=== PATIENT | female | born 1945 | race Caucasian/White ===

== ENCOUNTER 2019-09-25 15:31 | Inpatient (IN) ==
[2019-09-25 16:55] LABS: Basophils # 0.1 10*3/uL (0.0-0.2); Basophils % 0.6 % (0.0-0.8); Eosinophils # 0.1 10*3/uL (0.0-0.87); Eosinophils % 0.4 % (0.00-10.9); Hematocrit 40.5 VOL% (35.7-47.0); Hemoglobin 13.3 GM/DL (12.0-16.0); Immature Granulocytes % 0.5 %; Immature Granulocytes Absolute 0.08 #; Lymphocytes # 1.4 10*3/uL (1.4-4.0); Lymphocytes % 8.9 % (21.3-54.2); Mean Corpuscular HGB Conc 32.8 GM/DL (32-36); Mean Corpuscular Volume 97.8 FL (87-102); Mean Platelet Volume 9.8 FL (9.6-12.0); Monocytes % 6.6 % (1.7-12.7); Platelet Count 469 T/CUMM (130-400); Red Blood Count 4.14 MC/CUMM (3.8-5.5); Red Cell Distribution Width 12.9 % (9.3-17.3); White Blood Count 16.2 T/CUMM (4-12)
[2019-09-25] MEDS ORDERED: DEXTROSE 50% 25 GM/50 ML SYRINGE IV ONE (17:01)
[2019-09-25] MEDS ORDERED: INSULIN REGULAR 100 UNIT/ML ONE (17:03)
[2019-09-25 17:21] LABS: Calcium 9.8 MG/DL (8.5-10.1); Osmolality,Calculated 268.2 MOS/KG (273-304)
[2019-09-25] MEDS ORDERED: LEVOFLOXACIN INJ 750 MG in PREMIX 1 EACH IV STA (17:26)
[2019-09-25] MEDS ORDERED: DEXTROSE 10% 250 ML BAG IV PRN (18:26)
[2019-09-25] MEDS ORDERED: MORPHINE 4 MG/1 ML VIAL IV PRN (18:26)
[2019-09-25] MEDS ORDERED: NICOTINE 21 MG/24 HR PATCH TRANSDERM PRN (18:26)
[2019-09-25] MEDS ORDERED: DOCUSATE SODIUM 100 MG CAPSULE PO PRN (18:26)
[2019-09-25] MEDS ORDERED: guaiFENesin/DM ER 600-30 MG TABLET PO PRN (18:26)
[2019-09-25] MEDS ORDERED: GLUCAGON 1 MG VIAL IM PRN (18:26)
[2019-09-25] MEDS ORDERED: ONDANSETRON 4 MG/2 ML VIAL IV PRN (18:26)
[2019-09-25] MEDS ORDERED: ALBUTEROL/IPRATROPIUM 3 ML NEB RESP TX PRN (18:26)
[2019-09-25] MEDS ORDERED: POTASSIUM CHLORIDE 20 MEQ TABLET PO PRN (18:49)
[2019-09-25] MEDS ORDERED: MAGNESIUM SULF RIDER 2 GM in PREMIX 1 EACH IV PRN (18:49)
[2019-09-25] MEDS ORDERED: MAGNESIUM SULF RIDER 4 GM in PREMIX 1 EACH IV PRN (18:49)
[2019-09-25] MEDS ORDERED: hydrALAZINE 20 MG/1 ML VIAL IV PRN (18:49)
[2019-09-25] MEDS: ENOXAPARIN 40 MG/0.4 ML SYRINGE SUBCUT SCH (20:02)
[2019-09-25 21:12] LABS: Apearance,Urine CLEAR (Clear); Bilirubin,Urine Negative (Negative); Blood, Urine Moderate mg/dL (Negative); Glucose,Urine (UA) Negative (Negative); Ketones,Urine Negative (Negative); Mucus,Urine Occasional /LPF (Occasional); Nitrite,Urine Negative (Negative); Protein,Urine 30 MG/DL; RBC,Urine 1 /HPF (0-4); Squamous Epithelial Cell,Urine Occasional /HPF (0-10); Urine Color Yellow (Yellow); Urine Specific Gravity 1.016 (1.001-1.035); Urine Urobilinogen < 2.0 EU/DL (0.2-1.0); WBC,Urine 1 /HPF (0-6)
[2019-09-25 22:02] LABS: Barbiturates Screen,Urine Negative (Negative); Benzodiazepines Screen,Urine Negative (Negative); Cannabinoid Screen,Urine Negative (Negative); Opiate Screen,Urine Positive (Negative); Phencyclidine Screen,Urine Negative (Negative)
[2019-09-25] MEDS ORDERED: ACETAMINOPHEN 325 MG TABLET PO PRN (23:31)
[2019-09-26 04:55] LABS: Basophils # 0.1 10*3/uL (0.0-0.2); Basophils % 0.6 % (0.0-0.8); Eosinophils # 0.1 10*3/uL (0.0-0.87); Eosinophils % 0.5 % (0.00-10.9); Hematocrit 38.3 VOL% (35.7-47.0); Hemoglobin 11.3 GM/DL (12.0-16.0); Immature Granulocytes % 0.6 %; Immature Granulocytes Absolute 0.06 #; Lymphocytes # 1.7 10*3/uL (1.4-4.0); Lymphocytes % 16.1 % (21.3-54.2); Mean Corpuscular HGB Conc 29.5 GM/DL (32-36); Mean Corpuscular Volume 109.4 FL (87-102); Mean Platelet Volume 9.6 FL (9.6-12.0); Monocytes % 10.5 % (1.7-12.7); Neutrophils % 71.7 % (38.7-73.9); Platelet Count 384 T/CUMM (130-400); Red Cell Distribution Width 13.2 % (9.3-17.3); White Blood Count 10.6 T/CUMM (4-12)
[2019-09-26 05:17] LABS: Albumin 2.5 G/DL (3.4-5.0); Bilirubin,Total 0.5 MG/DL (0.2-1.0); Osmolality,Calculated 267.2 MOS/KG (273-304); Thyroid Stimulating Hormone 1.07 uIU/ml (0.358-3.74); Total Protein 6.9 G/DL (6.4-8.3)
[2019-09-26] MEDS: PANTOPRAZOLE 40 MG TABLET PO SCH (09:07)
[2019-09-26] MEDS: LEVOFLOXACIN INJ 750 MG in PREMIX 1 EACH IV SCH (18:32)
[2019-09-26] MEDS: ENOXAPARIN 40 MG/0.4 ML SYRINGE SUBCUT SCH (20:00)
[2019-09-27 04:32] LABS: Basophils # 0.1 10*3/uL (0.0-0.2); Basophils % 0.8 % (0.0-0.8); Eosinophils # 0.1 10*3/uL (0.0-0.87); Eosinophils % 1.4 % (0.00-10.9); Hematocrit 35.5 VOL% (35.7-47.0); Hemoglobin 11.5 GM/DL (12.0-16.0); Immature Granulocytes Absolute 0.09 #; Lymphocytes # 1.9 10*3/uL (1.4-4.0); Lymphocytes % 20.3 % (21.3-54.2); Mean Corpuscular HGB Conc 32.4 GM/DL (32-36); Mean Corpuscular Volume 99.2 FL (87-102); Mean Platelet Volume 9.5 FL (9.6-12.0); Monocytes % 9.1 % (1.7-12.7); Neutrophils % 67.4 % (38.7-73.9); Platelet Count 385 T/CUMM (130-400); Red Blood Count 3.58 MC/CUMM (3.8-5.5); White Blood Count 9.3 T/CUMM (4-12)
[2019-09-27 05:02] LABS: Alanine Aminotransferase 13 U/L (13-56); Albumin 2.3 G/DL (3.4-5.0); Alkaline Phosphatase 82 U/L (45-117); Aspartate Amino Transferase 11 U/L (0-37); Bilirubin,Total < 0.39 MG/DL (0.2-1.0); Blood Urea Nitrogen 16 MG/DL (7-18); Calcium 9.2 MG/DL (8.5-10.1); Estimated Glom Filtration Rate 54 ML/MIN; Glucose 107 MG/DL (74-106); Osmolality,Calculated 270.1 MOS/KG (273-304); Total Protein 6.6 G/DL (6.4-8.3)
[2019-09-27] MEDS: PANTOPRAZOLE 40 MG TABLET PO SCH (10:15)
[2019-09-27] MEDS: BENZONATATE 100 MG CAPSULE PO SCH ×2 (12:37→20:06)
[2019-09-27] MEDS: LEVOFLOXACIN INJ 750 MG in PREMIX 1 EACH IV SCH (18:14)
[2019-09-27] MEDS: ENOXAPARIN 40 MG/0.4 ML SYRINGE SUBCUT SCH (20:06)
[2019-09-28 05:08] LABS: Basophils % 0.6 % (0.0-0.8); Eosinophils # 0.1 10*3/uL (0.0-0.87); Eosinophils % 1.6 % (0.00-10.9); Hematocrit 36.9 VOL% (35.7-47.0); Hemoglobin 11.4 GM/DL (12.0-16.0); Immature Granulocytes % 0.9 %; Immature Granulocytes Absolute 0.06 #; Lymphocytes # 1.7 10*3/uL (1.4-4.0); Lymphocytes % 24.5 % (21.3-54.2); Mean Corpuscular HGB Conc 30.9 GM/DL (32-36); Mean Corpuscular Volume 103.4 FL (87-102); Mean Platelet Volume 9.7 FL (9.6-12.0); Monocytes % 9.7 % (1.7-12.7); Neutrophils % 62.7 % (38.7-73.9); Platelet Count 399 T/CUMM (130-400); Red Blood Count 3.57 MC/CUMM (3.8-5.5); Red Cell Distribution Width 12.7 % (9.3-17.3); White Blood Count 6.9 T/CUMM (4-12)
[2019-09-28 05:18] LABS: Alanine Aminotransferase 14 U/L (13-56); Albumin 2.4 G/DL (3.4-5.0); Alkaline Phosphatase 80 U/L (45-117); Aspartate Amino Transferase 12 U/L (0-37); Bilirubin,Total < 0.39 MG/DL (0.2-1.0); Blood Urea Nitrogen 23 MG/DL (7-18); Calcium 9.4 MG/DL (8.5-10.1); Estimated Glom Filtration Rate 62 ML/MIN; Glucose 108 MG/DL (74-106); Osmolality,Calculated 266.7 MOS/KG (273-304); Total Protein 7.1 G/DL (6.4-8.3)
[2019-09-28] MEDS: LEVOFLOXACIN INJ 750 MG in PREMIX 1 EACH IV SCH (08:35)
[2019-09-28] MEDS: BENZONATATE 100 MG CAPSULE PO SCH (08:35)
[2019-09-28] MEDS: PANTOPRAZOLE 40 MG TABLET PO SCH (08:35)
[2019-09-28 13:07] VITALS: BP 134/70
== END 2019-09-28 14:20 | disposition home or self-care (01) | DRG 194 ==
LOC: N.ED 15:31 → SUATTDRO 18:26 → N.EDINP 18:26 → N.2E 20:17
PROVIDERS: ADMIT Internal Medicine; ATTEND Internal Medicine